=== PATIENT | female | born 1990 | race Caucasian/White ===

== ENCOUNTER 2016-11-10 14:50 | Emergency (ER) | payer OTHER ==
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
[~2016-11-10 14:50] MED LIST: ACETAMINOOPHEN-1 TAB PO; AZO OTC; CIPRO XR 500 M500 MG PO; DOXYCYCLINE HY100 M3 PO; GUAIFENESIN DM118 ML PO; IMPLANON; KETOPROFEN PO; LORTAB 5/500 TA1 TA1 PO; NO MEDICATIONS; PERCOCET5/325 PO; PHENERGAN12.5 MG PO; PRENATAL VITAMI1 TA3 PO; PYRIDIUM PO; ZOFRANODT PO
== END 2016-11-10 16:55 | disposition home or self-care (01) ==
LOC: CED 14:50
DX: S02.31XA Fracture of orbital floor, right side, initial encounter for closed fracture (principal); S02.2XXA Fracture of nasal bones, initial encounter for closed fracture; Z23 Encounter for immunization; Z79.899 Other long term (current) drug therapy; V43.62XA Car passenger injured in collision with other type car in traffic accident, initial encounter
CPT/HCPCS: 70450; 70486; 72125; 90471; 90715; 96372; 99284; J1885